=== PATIENT | female | born 1965 | race Asian ===

== ENCOUNTER 2016-11-17 11:50 | Day surgery (SDC) | payer BC ==
[~2016-11-17] VITALS: Ht 152.4 cm; Wt 60.6 kg
[2016-11-17 12:51] VITALS: Ht 152.4 cm; Wt 60.6 kg
[2016-11-17] MEDS ORDERED: PANTOPRAZOLE (12:57)
[2016-11-17] MEDS ORDERED: NEXIUM (12:57)
[2016-11-17] MEDS ORDERED: VIREAD (12:57)
[2016-11-17 13:29] VITALS: BP 139/77; PULSE 61; RESP 12
[2016-11-17] MEDS ORDERED: FENTAnyl 50 MCG/ML VIAL ONE (13:34)
[2016-11-17] MEDS ORDERED: PROPOFOL 20 ML ONE (13:34)
[2016-11-17] MEDS ORDERED: MIDAZOLAM 1 MG/ML 2 ML INJ ONE (13:34)
--- NOTE | 2016-11-17 14:17 | GILP ---
DATE OF PROCEDURE: 11/17/2016 PROCEDURE: Esophagogastroduodenoscopy with biopsies. INDICATION: The patient is being evaluated for history of hepatitis, rule out esophageal varices. PREMEDICATION: Monitored anesthesia care by anesthesiologist. SURGEON: Sachi Alfonso MD. INSTRUMENT USED: Olympus panendoscopy. TECHNIQUE: After informed consent, with the patient/relatives understanding the procedure, its indic ations, potential risks and complications, including but not limited to: allergic reaction, bleeding , perforation or infection, and after all pertinent questions were answered to the patients satisfac tion, the patient/relatives signed witnessed informed consent. Following this, premedication was administered slowly IV push under careful cardiovascular and respi ratory monitoring with pulse oximetry, automatic blood pressure and piano case and bench assembler. Once the sedative effect was achieved the patient was place in the left lateral decubitus, the panen doscope was introduced and advanced under visual control. Careful examination of the upper gastrointestinal tract, both on insertion as well as withdrawal of the instrument disclosed the following findings: ESOPHAGUS: There is no evidence of esophageal varices. STOMACH: Upon entrance into the stomach, air was insufflated, the gastric downs distended normally. There is erythema and edema of the mucosa of a moderate degree. Biopsies were obtained to rule out H. pylori infection. PYLORUS: The pylorus appears patent and within normal limits, with no evidence of gastric outlet ob struction. DUODENUM: The duodenal mucosa was carefully examined in the duodenal bulb as well as the second por tion of the duodenum and appears unremarkable with no evidence of duodenitis, ulcer or neoplasm. The instrument was then withdrawn, the patient tolerated the procedure well and was transfer out of the endoscopy suite awake, and in good condition to continue recovery under observation IMPRESSION: 1. No evidence of esophageal varices. 2. Gastritis, rule out Helicobacter pylori infection, biopsies obtained. PLAN: The patient will be continued on PPIs. Pathology will be reviewed as soon as available. Rep eat endoscopic examination in 1 year is recommended for surveillance. Dictated By: SACHI ALFONSO MS/LEIGH ANN Conf#: [id number] DID#: [id number]
[2016-11-17 14:25] VITALS: BP 107/61; PULSE 58; RESP 16
[2016-11-17 14:50] VITALS: PULSE 60; RESP 16
== END 2016-11-17 15:10 | disposition home or self-care (01) ==
LOC: GIL 11:50
PROVIDERS: ATTEND Internal Medicine Gastroenterology
DX: K29.50 Unspecified chronic gastritis without bleeding (principal)
CPT/HCPCS: 43239; 88305; 88312; J2250; J3010; Z7610

== ENCOUNTER 2018-05-17 11:46 | Day surgery (SDC) | END 2018-05-17 17:01 | disposition home or self-care (01) ==

== ENCOUNTER 2019-05-28 07:28 | Day surgery (SDC) | payer BC ==
[2019-05-28] VITALS (9 sets, daily range): BP systolic 100–141; BP diastolic 64–72; PULSE 49–55; RESP 15–18; Ht 152.4 cm; Wt 57.9 kg
[~2019-05-28] VITALS: Ht 152.4 cm; Wt 57.9 kg
[~2019-05-28 07:28] MED LIST: NEXIUM; PANTOPRAZOLE; TENO25TA PO; VIREAD
[2019-05-28] MEDS ORDERED: PROPOFOL 20 ML ONE (12:50)
== END 2019-05-28 13:28 | disposition home or self-care (01) ==
LOC: GIL 07:28
PROVIDERS: ATTEND Internal Medicine Gastroenterology
DX: K76.6 Portal hypertension (principal); K31.89 Other diseases of stomach and duodenum
CPT/HCPCS: 43239; Z7610; 88305